=== PATIENT | female | born 1980 ===

== ENCOUNTER 2024-06-25 04:17 | Day surgery (SDC) | payer OTHER ==
[2024-06-23 13:25] VITALS: BMI 24.9
[2024-06-25] MEDS ORDERED: LIDOCAINE HCL 1%, 10 MG/ML (20ML VIAL) ONE (12:29)
[2024-06-25] MEDS ORDERED: MIDAZOLAM HCL 2 MG/2 ML SINGLE DOSE VIAL ONE ×2 (12:44→12:57)
[2024-06-25] MEDS ORDERED: KETAMINE HCL 200 MG/20 ML VIAL ONE (12:44)
[2024-06-25] MEDS ORDERED: PROPOFOL 20 ML ONE (12:44)
[2024-06-25] MEDS: ceFAZolin SODIUM 1 GM VIAL IVPB ONE (13:00)
[2024-06-25] MEDS: LIDOCAINE HCL 1%, 10 MG/ML (20ML VIAL) NR ONE (13:08)
[2024-06-25 13:59] VITALS: RESP 18; TEMP 97.5
[2024-06-25] MEDS: ACETAMINOPHEN 500 MG TABLET (FP) PO ONE (14:20)
[2024-06-25] MEDS ORDERED: ACETAMINOPHEN 500 MG TABLET (FP) ONE (14:20)
[2024-06-25] MEDS ORDERED: ACETAMINOPHEN 1000 MG/100 ML BAG IVPB ONE (14:20)
[2024-06-25 15:02] VITALS: BP 108/70; PULSE 72
== END 2024-06-25 15:14 | disposition home or self-care (01) ==
LOC: JASU-SURG 04:17
PROVIDERS: ATTEND Surgery
PROC: 0HBU0ZZ Excision of Left Breast, Open Approach (ICD-10-PCS; principal; 2024-06-25 13:00)
DX: N60.82 Other benign mammary dysplasias of left breast (principal); L72.3 Sebaceous cyst
CPT/HCPCS: 81025; 88304-TC